=== PATIENT | female | born 1965 | race Caucasian/White ===

== ENCOUNTER 2017-07-01 16:38 | Emergency (ER) | payer SELFPAY ==
[~2017-07-01] VITALS: Ht 157.5 cm; Wt 61.4 kg
[2017-07-01 16:42] VITALS: BP 141/66
[2017-07-01] MEDS ORDERED: CLINDAMYCIN 150 MG CAP PO ONE (17:30)
[2017-07-01] MEDS ORDERED: NORCO, ANEXSIA 5/325MG TABLET (HYDROcodone/ACETAMINOPHEN) PO ONE (17:30)
[2017-07-01] MEDS ORDERED: NORCOTAB PO (17:32)
[2017-07-01] MEDS ORDERED: CLEO300C2 PO (17:32)
== END 2017-07-01 17:42 | disposition home or self-care (01) ==
LOC: M ED 16:38
DX: K12.2 Cellulitis and abscess of mouth (principal); K08.89 Other specified disorders of teeth and supporting structures; F17.200 Nicotine dependence, unspecified, uncomplicated; Z91.040 Latex allergy status